=== PATIENT | female | born 1990 ===

== ENCOUNTER 2022-05-03 07:30 | Emergency (ER) | payer MEDICAID ==
[~2022-05-03] VITALS: Ht 177.8 cm; Wt 54.5 kg
[2022-05-03 07:50] LABS: COVID AG,FIA SOURCE NASAL SWAB
[2022-05-03 08:15] LABS: INFLUENZA TYPE A NEGATIVE FOR TYPE A (NEGATIVE); INFLUENZA TYPE B NEGATIVE FOR TYPE B (NEGATIVE)
[2022-05-03 08:36] VITALS: BP 121/76
== END 2022-05-03 08:50 | disposition home or self-care (01) ==
LOC: EMS 07:30
DX: J06.9 Acute upper respiratory infection, unspecified (principal); F11.10 Opioid abuse, uncomplicated; Z90.89 Acquired absence of other organs; F15.90 Other stimulant use, unspecified, uncomplicated; F17.210 Nicotine dependence, cigarettes, uncomplicated; Z20.822 Contact with and (suspected) exposure to COVID-19
CPT/HCPCS: 87804; 99283